=== PATIENT | female | born 1980 | race Caucasian/White ===

== ENCOUNTER → 2022-11-19 12:03 | Outpatient (CLI) | payer MEDICARE, SELFPAY ==
--- NOTE | ~2022-11-19 | MR_ITS ---
EXAMINATION: MR brain/brain stem wo con DATE: 11/19/2022 12:52 INDICATION: Aphasia and confusion TECHNIQUE: Magnetic resonance imaging (MRI) of the brain and brainstem was performed without intraven ous contrast. Sequences included sagittal and axial T1-weighted SE, axial diffusion-weighted FS SE, a xial T2*-weighted GRE, axial T2-weighted FLAIR, and axial T2-weighted FSE. Apparent diffusion coeffic ient (ADC) maps were created. COMPARISON: None. FINDINGS: There are no areas of restricted diffusion to suggest acute infarction. No intracranial hemorrhage or abnormal intracranial mass lesion. There are no intraparenchymal signal abnormalities seen on the ot her pulse sequences. The ventricles are symmetric and normal in size. There are no abnormal extra-axi al fluid collections. Flow voids are seen in the cerebral arteries on the T2-weighted sequences consi stent with their expected patency. Visualized orbits and soft tissues are unremarkable. IMPRESSION: 1. Normal brain MR. Reviewed, dictated and finalized at location A. IMPRESSION: 1. Normal brain MR.
== END ==
PROVIDERS: PCP Family Medicine; Visit Provider Physician Assistant Medical
DX: R47.01 Aphasia (principal)
CPT/HCPCS: 70551

== ENCOUNTER 2023-12-17 13:46 | Outpatient (CLI) | payer MEDICARE, SELFPAY ==
--- NOTE | ~2023-12-17 | US_ITS ---
EXAMINATION: US arterial ankle brachial ind DATE: 12/17/2023 14:36 INDICATION: Peripheral arterial disease. Cold and blue toes. TECHNIQUE: Segmental pressures and plethysmographic and Doppler waveforms of the brachial and lower e xtremity arteries were obtained. COMPARISON: None. FINDINGS: Right and left brachial artery pressures of 126 mm Hg and 123 mm Hg, respectively, are concordant (no rmal difference <= 30 mmHg). The right ankle-brachial index (RANDALL) is 1.21 (normal >= 0.9-1.0). There is no detectable arterial maria luz w in the right great toe. Arterial Doppler waveforms are at least triphasic at the ankle. The left RANDALL is 1.13. There is no detectable arterial flow in the left great toe. Arterial Doppler wa veforms are triphasic in posterior tibial artery and biphasic in dorsalis pedis. IMPRESSION: 1. Normal ABIs. 2. No detectable arterial flow in the great toes. Reviewed, dictated and finalized at location A.
== END 2023-12-17 13:47 | disposition home or self-care (01) ==
LOC: ANHIMG 13:46
PROVIDERS: PCP Physician Assistant Medical; Visit Provider Physician Assistant Medical
DX: R09.89 Other specified symptoms and signs involving the circulatory and respiratory systems (principal)
CPT/HCPCS: 93922